=== PATIENT | female | born 1960 | race Caucasian/White ===

== ENCOUNTER → 2025-03-24 17:05 | Outpatient (BNVA) | payer MEDICAID, SELFPAY | PROVIDERS: Family Provider Internal Medicine; PCP Specialist; Visit Provider Emergency Medicine | DX: R39.9 Unspecified symptoms and signs involving the genitourinary system (principal) | CPT/HCPCS: 81000 ==

== ENCOUNTER → 2025-05-25 10:39 | Outpatient (BNVA) | payer MEDICAID, SELFPAY | PROVIDERS: Family Provider Internal Medicine; PCP Specialist; Visit Provider Family Medicine | DX: Z00.00 Encounter for general adult medical examination without abnormal findings (principal); E53.8 Deficiency of other specified B group vitamins; I10 Essential (primary) hypertension; Z13.6 Encounter for screening for cardiovascular disorders; R73.09 Other abnormal glucose; Z51.81 Encounter for therapeutic drug level monitoring; E55.9 Vitamin D deficiency, unspecified | CPT/HCPCS: 80053; 80061; 82306; 82607; 83036; 84443; 84550; 85025 ==

== ENCOUNTER → 2025-06-01 16:26 | Outpatient (BNVA) | payer MEDICAID, SELFPAY | PROVIDERS: Family Provider Internal Medicine; PCP Specialist; Visit Provider Emergency Medicine | DX: R39.89 Other symptoms and signs involving the genitourinary system (principal) | CPT/HCPCS: 87086 ==

== ENCOUNTER → 2025-06-02 07:14 | Outpatient (BNVA) | payer MEDICAID, SELFPAY | PROVIDERS: Family Provider Internal Medicine; PCP Specialist; Visit Provider Emergency Medicine | DX: R39.89 Other symptoms and signs involving the genitourinary system (principal) | CPT/HCPCS: 81000 ==

== ENCOUNTER → 2025-06-05 08:32 | Outpatient (BNVA) | payer MEDICAID, SELFPAY | PROVIDERS: Family Provider Internal Medicine; PCP Specialist; Visit Provider Student in an Organized Health Care Education/Training Program | DX: Z12.11 Encounter for screening for malignant neoplasm of colon (principal) | CPT/HCPCS: 99024; 99204 ==

== ENCOUNTER 2025-06-13 11:23 | Day surgery (SDC) | payer MEDICAID, SELFPAY ==
[2025-06-13 11:36] VITALS: BP 170/96; PULSE 68; RESP 18; TEMP 36.1; O2SAT 99; BMI 34.7
--- NOTE | 2025-06-13 11:40 | ANES.PREANE2 ---
Pre-Anesthetic Assessment Height/Weight: Height 1.65 m Weight 94.801 kg Temp Pulse Resp BP Pulse Ox O2 Del Method 97 F L 68 18 170/96 99 Room Air 06/13/25 11:36 06/13/25 11:36 06/13/25 11:36 06/13/25 11:36 06/13/25 11:36 06/13/25 11:36 Preop Diagnosis: screening Operation Date: 06/13/25 11:45 Proposed Procedures p Colonoscopy 13014 G0121 Z12.11(Not Applicable) - Dharmesh Mejia MD Was Beta Franki taken within 24 hours: N/A Was Clonidine taken within 24 hours: N/A Last intake: Intake Last Liquid Date 06/12/25 Last Liquid Time 22:00 Last Solid Date 06/11/25 Last Solid Time 20:00 Social No alcohol and No tobacco Exam alert, oriented x 3, clear to auscultation bilaterally and regular rate & rhythm Airway Submandibular: Other (TMD<3) Cervical ROM: within normal limits Mallampati: Class II Dentition: chipped History/ROS No significant history except as noted Pulmonary None reported CV/HEM Hypertension Urinary Tract Infection frequent UTIs Hepatic None reported GI Gastroesophageal Reflux Disease Musc/skel Osteoarthritis/DJD Neuropsych Seizure last seizure 04/2025 Anesthetic Plan ASA status: 3 Anesthesia: Anesthesia Evaluation and MAC Risk of > 500 ml blood loss (7ml/kg in children): No Medications/Allergies Home Medications ?Medication ?Instructions ?Recorded ?Confirmed ?Last Taken ?Type losartan 25 mg tablet 25 mg PO DAILY 03/24/25 06/13/25 06/12/25 History omeprazole 40 mg capsule,delayed 40 mg PO DAILY 03/24/25 06/07/25 06/11/25 History release rosuvastatin 5 mg tablet 5 mg PO DAILY 03/24/25 06/13/25 06/12/25 History topiramate 200 mg capsule,extended 200 mg PO DAILY 03/24/25 06/13/25 06/13/25 History release 24 hr carbamazepine (mood stabiliz) 300 300 mg PO BID 05/25/25 06/13/25 06/13/25 History mg capsule,extend release 12 hr(mood stabilizing) (Equetro) cholecalciferol (vitamin D3) 50 50 mcg PO DAILY 05/25/25 06/13/25 06/11/25 History mcg (2,000 unit) capsule clobetasol 0.05 % topical cream 1 applic topical BID PRN Rash 05/25/25 06/07/25 Unknown History clotrimazole-betamethasone 1 1 applic topical BID PRN Rash 05/25/25 06/07/25 05/31/25 History %-0.05 % lotion coenzyme Q10 200 mg/gram oral 200 mg PO BID 05/25/25 06/13/25 06/11/25 History powder (H2Q CoQ10) ipratropium bromide 42 mcg (0.06 2 spray intranasal BID 05/25/25 06/07/25 06/07/25 History %) nasal spray ketoconazole 2 % shampoo 1 applic topical DAILY PRN Dandruff 05/25/25 06/07/25 06/05/25 History lacosamide 100 mg tablet (Vimpat) 100 mg PO BID 05/25/25 06/07/25 06/07/25 History loratadine 10 mg tablet (Allergy 10 mg PO DAILY 05/25/25 06/13/25 06/12/25 History Relief (loratadine)) mecobalamin (vitamin B12) 500 mcg 500 mcg PO DAILY 05/25/25 06/13/25 06/11/25 History chewable tablet multivitamin 1 tab PO DAILY 05/25/25 06/13/25 06/11/25 History naproxen 500 mg tablet 500 mg PO BID 05/25/25 06/07/25 06/07/25 History nystatin 100,000 unit/gram topical 1 applic topical BID PRN Rash 05/25/25 06/07/25 Unknown History powder nitrofurantoin 100 mg PO BID 7 days #14 caps 06/01/25 06/07/25 06/07/25 Rx monohydrate/macrocrystals 100 mg capsule (Macrobid) glucosamine-chondroitin 250 mg-200 1 tab PO DAILY 06/07/25 06/13/25 06/11/25 History mg tablet Allergies Allergy/AdvReac Type Severity Reaction Status Date / Time meperidine (From Demerol) Allergy Severe stops Verified 06/07/25 08:54 breathing heavy cream Allergy Intermediate hives Uncoded 06/07/25 08:54 [facility] Anesthesia Medical History Seizure disorder Sees Dr Cammie Vivar in [place] Hypertension Surgical History (Updated 06/05/25 @ 08:42 by Martin Fuentes LPN) Hx of shoulder surgery After a fracture (Fall) Hx of Achilles tendon repair History of knee replacement Bilateral knee replacement Hx of section History of cholecystectomy Hx of tonsillectomy Age 41 Family History Grandmother Breast cancer Social History Smoking and tobacco/nicotine status: unknown if used tobacco/nicotine Alcohol intake: current Alcohol intake frequency: holidays/special occasions only Substance/Drug Use: never Current occupational status: disabled Current occupation: Volunteers at hospital Previous occupational history: Disabled since having major seizures
--- NOTE | 2025-06-13 11:46 | W.PM.OPSUD ---
Surgery/Procedure H&P Update DATE OF PROCEDURE: June 13, 2025 DATE H&P PERFORMED: 06/05/25 H&P UPDATE INFORMATION: I have reviewed H&P completed within last 30 days, I have examined patient prior to procedure, No changes to prior documentation and Risks and benefits of the procedure reviewed PREOP DIAGNOSIS: screening PLANNED PROCEDURE: Operation Date: 06/13/25 11:45 Proposed Procedures p Colonoscopy 27694 G0121 Z12.11(Not Applicable) - Dharmesh Mejia MD
[2025-06-13 12:20] VITALS: BP 127/81; PULSE 66; RESP 18; TEMP 36.3; O2SAT 96
== END 2025-06-13 12:46 | disposition home or self-care (01) ==
PROVIDERS: Family Provider Internal Medicine; PCP Family Medicine; Visit Provider Student in an Organized Health Care Education/Training Program
PROC: 0DJD8ZZ Inspection of Lower Intestinal Tract, Via Natural or Artificial Opening Endoscopic (ICD-10-PCS; CPT 45378; principal; 2025-06-13 11:45)
DX: Z12.11 Encounter for screening for malignant neoplasm of colon (principal); K21.9 Gastro-esophageal reflux disease without esophagitis; I10 Essential (primary) hypertension; G40.909 Epilepsy, unspecified, not intractable, without status epilepticus; Z80.3 Family history of malignant neoplasm of breast; N39.0 Urinary tract infection, site not specified
CPT/HCPCS: 45378; J2704; J3490; J7030